=== PATIENT | male | born 1965 | race Caucasian/White ===

== ENCOUNTER → 2017-01-26 | Outpatient (CLI) | payer OTHER ==
[~2017-01-26] MED LIST: ALBUTEROL2.5 MG/3 M NEB; BENADRYL 25MG C25 MG PO; DOXYCYCLINE HY100 MG PO; DULERA 200 MCG8.8 GM INH; HABITROL 21 MG P1 EA TD; METFORMIN HCL500 M2 PO; PRAVASTATIN SOD20 MG PO; PREDNISONE10 MG PO; PRINIVIL20 MG PO; PROVENTIL HFA 61 INH INH; SINGULAIR10 MG PO; VENTOLIN/PROVE0.5 ML INH
== END ==
LOC: SLEEP 14:53
DX: G47.33 Obstructive sleep apnea (adult) (pediatric) (principal)
CPT/HCPCS: 95810

== ENCOUNTER 2021-12-13 16:26 | Emergency (ER) | payer OTHER ==
[~2021-12-13 16:26] MED LIST changes: +FLEXERIL 10 MG10 MG PO; +LODINE CAP 300300 MG PO
[2021-12-13 17:16] LABS: HEMOGLOBIN 15.9 gm/dl (14.0-17.5); RED BLOOD COUNT 5.3 M/UL (4.20-5.50); WHITE BLOOD COUNT 9.5 K/UL (4.5-11.0)
[2021-12-13 17:38] LABS: BUN/CREATININE RATIO 19 (0-10)
== END 2021-12-13 17:20 | disposition admitted as inpatient to this hospital (09) ==
LOC: ER1 16:26
PROVIDERS: Family Medicine
DX: I21.19 ST elevation (STEMI) myocardial infarction involving other coronary artery of inferior wall (principal); I10 Essential (primary) hypertension; E11.9 Type 2 diabetes mellitus without complications; I77.810 Thoracic aortic ectasia; I25.10 Atherosclerotic heart disease of native coronary artery without angina pectoris; E66.01 Morbid (severe) obesity due to excess calories; G89.29 Other chronic pain; M54.50 Low back pain, unspecified; Z79.82 Long term (current) use of aspirin; Z79.1 Long term (current) use of non-steroidal anti-inflammatories (NSAID)
CPT/HCPCS: 71045; 80053; 82550; 82553; 84484; 85025; 85347; 85610; 92920; 93005; 96374; 99152; 99153; 99285; C1725; C1769; C1887; C1894; J0461; J1265; J1644; J2250; J2370; J2405; J3010; J7040; Q9965

== ENCOUNTER → 2022-01-15 | Outpatient (CLI) | payer OTHER | LOC: HEART 5 16:00 | DX: J44.9 Chronic obstructive pulmonary disease, unspecified (principal); R91.1 Solitary pulmonary nodule; Z79.891 Long term (current) use of opiate analgesic | CPT/HCPCS: 94060; 94729 ==